=== PATIENT | male | born 1950 | race African-American/Black ===

== ENCOUNTER 2017-11-11 01:46 | Inpatient (IN) ==
[2017-11-11] MEDS ORDERED: NITROGLYCERIN 2% OINT 1 INCH/GM PACK TOP STA (02:29)
[2017-11-11] MEDS ORDERED: ASPIRIN 325 MG TABLET PO STA (02:29)
[2017-11-11] MEDS ORDERED: MORPHINE 2 MG/1 ML SYRINGE IV PRN (03:22)
[2017-11-11] MEDS ORDERED: ONDANSETRON 4 MG/2 ML VIAL IV PRN (03:22)
[2017-11-11] MEDS: DEXTROSE 5% NACL 0.9% 1,000 ML IV SCH ×2 (05:01→14:40)
[2017-11-11] MEDS ORDERED: ZALEPLON 5 MG CAPSULE PO PRN (08:38)
[2017-11-11] MEDS ORDERED: ACETAMINOPHEN 325 MG TABLET PO PRN (08:38)
[2017-11-11] MEDS ORDERED: guaiFENesin/DM ER 600-30 MG TABLET PO PRN (08:38)
[2017-11-11] MEDS ORDERED: LACTULOSE 20 GM/30 ML UDCUP PO PRN (08:38)
[2017-11-11] MEDS ORDERED: diphenhydrAMINE CAP 25 MG CAPSULE PO PRN (08:38)
[2017-11-11] MEDS ORDERED: DOCUSATE SODIUM 100 MG CAPSULE PO PRN (08:38)
[2017-11-11] MEDS ORDERED: MAGNESIUM SULF RIDER 2 GM in PREMIX 1 EACH IV PRN ×2 (08:49→09:51)
[2017-11-11] MEDS ORDERED: POTASSIUM CHLORIDE 20 MEQ TABLET PO PRN (08:49)
[2017-11-11] MEDS ORDERED: MAGNESIUM SULF RIDER 4 GM in PREMIX 1 EACH IV PRN (08:49)
[2017-11-11] MEDS ORDERED: DEXTROSE 50% 25 GM/50 ML VIAL IV PRN (08:55)
[2017-11-11] MEDS ORDERED: GLUCAGON 1 MG VIAL IM PRN (08:55)
[2017-11-11] MEDS ORDERED: PNEUMOCOCCAL VACCINE (13 VALENT) 0.5 ML SYRINGE IM ONE (09:00)
[2017-11-11 09:18] LABS: Risk Ratio 4.24; Thyroid Stimulating Hormone 1.77 uIU/ml (0.358-3.74)
[2017-11-11] MEDS ORDERED: POTASSIUM CHLORIDE RIDER 10 MEQ in PREMIX 1 EACH IV PRN (09:51)
[2017-11-11] MEDS ORDERED: DIAZEPAM 5 MG TABLET PO ONE (09:51)
[2017-11-11] MEDS ORDERED: diphenhydrAMINE CAP 25 MG CAPSULE PO ONE ×2 (09:51→09:52)
[2017-11-11] MEDS ORDERED: ASPIRIN 325 MG TABLET PO ONE (09:51)
[2017-11-11] MEDS: DILTIAZEM CD 240 MG CAPSULE PO SCH (10:14)
[2017-11-11] MEDS: LISINOPRIL 5 MG TABLET PO SCH (10:15)
[2017-11-11] MEDS: PANTOPRAZOLE 40 MG TABLET PO SCH (10:16)
[2017-11-11] MEDS: ISOSORBIDE MONONITRATE 30 MG TABLET PO SCH (10:16)
[2017-11-11 10:19] LABS: Basophils % 0.5 % (0.0-0.8); Eosinophils # 0.1 10*3/uL (0.0-0.87); Eosinophils % 1.4 % (0.00-10.9); Hematocrit 39.7 VOL% (42.0-52.0); Hemoglobin 13.1 GM/DL (14.0-18.0); Immature Granulocytes % 0.4 %; Immature Granulocytes Absolute 0.02 #; Lymphocytes # 1.5 10*3/uL (1.4-4.0); Lymphocytes % 26.5 % (21.2-54.2); Mean Corpuscular Hemoglobin 30 PG (27-34); Mean Corpuscular Volume 91.9 FL (87-102); Monocytes # 0.5 10*3/uL (0.11-0.8); Monocytes % 8.7 % (1.7-12.7); Neutrophils # 3.5 10*3/uL (1.4-7.4); Neutrophils % 62.5 % (38.7-73.9); Platelet Count 107 T/CUMM (130-400); Red Blood Count 4.32 MC/CUMM (3.8-5.5); Red Cell Distribution Width 14.1 % (9.3-17.3); White Blood Count 5.6 T/CUMM (4-12)
[2017-11-11 10:28] LABS: PT Patient Result 10.2 SECS; Partial Thromboplastin Time 28.5 SECS (0-40)
[2017-11-11] MEDS ORDERED: LIDOCAINE 2% 20 ML VIAL ONE (10:33)
[2017-11-11] MEDS ORDERED: MEPERIDINE 25 MG/1 ML VIAL ONE ×2 (10:36→12:37)
[2017-11-11] MEDS ORDERED: MIDAZOLAM 2 MG/2 ML VIAL ONE (10:37)
[2017-11-11 10:49] LABS: Albumin 3.7 G/DL (3.4-5.0); Bilirubin,Total 1.3 MG/DL (0.2-1.0); Calcium 9.3 MG/DL (8.5-10.1); Osmolality,Calculated 286.1 MOS/KG (273-304); Potassium 3.8 MMOL/L (3.5-5.1); Total Protein 6.9 G/DL (6.4-8.3)
[2017-11-11] MEDS ORDERED: HEPARIN 5,000 UNIT/1 ML VIAL ONE (11:23)
[2017-11-11] MEDS ORDERED: TIROFIBAN 5,000 MCG/100 ML PREMIX IV ONE (11:24)
[2017-11-11] MEDS ORDERED: TIROFIBAN 5,000 MCG/100 ML PREMIX IV SCH (11:35)
[2017-11-11] MEDS ORDERED: ADENOSINE 6 MG/2 ML VIAL ONE (12:16)
[2017-11-11] MEDS ORDERED: TICAGRELOR 90 MG TABLET ONE (13:19)
[2017-11-11] MEDS: INSULIN LISPRO 100 UNIT/ML SUBCUT SCH ×3 (13:46→22:40)
[2017-11-11] MEDS: TAMSULOSIN 0.4 MG CAPSULE PO SCH (14:15)
[2017-11-11] MEDS: hydroCHLOROthiazide 25 MG TABLET PO SCH (14:15)
[2017-11-11] MEDS: SODIUM CHLORIDE 0.9% 1,000 ML IV SCH ×2 (14:40→14:47)
[2017-11-11 15:29] LABS: Troponin I Only 0.229 NG/ML (0.00-0.045)
[2017-11-11] MEDS: TICAGRELOR 90 MG TABLET PO SCH (22:02)
[2017-11-12 00:50] LABS: Troponin I Only 0.547 NG/ML (0.00-0.045)
[2017-11-12] MEDS: SODIUM CHLORIDE 0.9% 1,000 ML IV SCH (00:57)
[2017-11-12] MEDS: DEXTROSE 5% NACL 0.9% 1,000 ML IV SCH ×3 (00:58→12:01)
[2017-11-12 06:37] LABS: Basophils % 0.6 % (0.0-0.8); Eosinophils # 0.1 10*3/uL (0.0-0.87); Eosinophils % 1.8 % (0.00-10.9); Hematocrit 36.3 VOL% (42.0-52.0); Hemoglobin 12.2 GM/DL (14.0-18.0); Immature Granulocytes % 0.4 %; Immature Granulocytes Absolute 0.02 #; Lymphocytes % 20.2 % (21.2-54.2); Mean Corpuscular HGB Conc 33.6 GM/DL (32-36); Mean Corpuscular Hemoglobin 30 PG (27-34); Mean Corpuscular Volume 89.9 FL (87-102); Mean Platelet Volume 11.4 FL (9.6-12.0); Monocytes # 0.6 10*3/uL (0.11-0.8); Monocytes % 11.1 % (1.7-12.7); Neutrophils # 3.4 10*3/uL (1.4-7.4); Neutrophils % 65.9 % (38.7-73.9); Platelet Count 100 T/CUMM (130-400); Red Blood Count 4.04 MC/CUMM (3.8-5.5); Red Cell Distribution Width 14.1 % (9.3-17.3); White Blood Count 5.1 T/CUMM (4-12)
[2017-11-12 06:50] LABS: Osmolality,Calculated 276.5 MOS/KG (273-304); Potassium 3.8 MMOL/L (3.5-5.1)
[2017-11-12 06:59] LABS: Troponin I Only 0.393 NG/ML (0.00-0.045)
[2017-11-12] MEDS: INSULIN LISPRO 100 UNIT/ML SUBCUT SCH ×3 (08:00→16:00)
[2017-11-12] MEDS ORDERED: ASPIRIN EC 81 MG TABLET PO SCH (09:00)
[2017-11-12] MEDS: PANTOPRAZOLE 40 MG TABLET PO SCH (09:55)
[2017-11-12] MEDS: ISOSORBIDE MONONITRATE 30 MG TABLET PO SCH (09:55)
[2017-11-12] MEDS: TICAGRELOR 90 MG TABLET PO SCH (09:55)
[2017-11-12] MEDS: LISINOPRIL 5 MG TABLET PO SCH (09:56)
[2017-11-12] MEDS: DILTIAZEM CD 240 MG CAPSULE PO SCH (09:56)
[2017-11-12] MEDS: hydroCHLOROthiazide 25 MG TABLET PO SCH (09:56)
[2017-11-12] MEDS: TAMSULOSIN 0.4 MG CAPSULE PO SCH (09:58)
[2017-11-12 11:34] VITALS: BP 121/69
== END 2017-11-12 17:05 | disposition home or self-care (01) | DRG 249 ==
LOC: EDBD → EDUNIT# → N.ED 01:46 → N.EDINP 03:22 → N.TELEN 03:58
PROVIDERS: ADMIT Internal Medicine Cardiovascular Disease; ATTEND Internal Medicine Cardiovascular Disease
PROC: CLCCHCL (ICD-10-PCS; 2017-11-11 10:45)